=== PATIENT | male | born 1980 | race Two or more races ===

== ENCOUNTER 2025-01-08 22:43 | Emergency (ER) | payer SELFPAY ==
[2025-01-08 22:44] VITALS: BMI 30.7
--- NOTE | 2025-01-08 23:13 | PD.EDEYE ---
ED Eye Problem RME/HPI General Chief complaint: Eye Problems Stated complaint: FB IN LEFT EYE Time Seen by Provider: 01/08/25 23:12 Arrival date/time: 01/08/25 22:43 44M with no significant PMH presents to ED with FB sensation in L eye after he was doing metal grinding at home. Patient was wearing goggles but felt something in his L eye after he took them off. Patient does not wear contacts. Related Data Previous Rx's ?Medication ?Instructions ?Recorded ciprofloxacin HCl 500 mg tablet 500 mg PO Q12H #20 tabs 07/13/18 (Cipro) ibuprofen 800 mg tablet (IBU) 800 mg PO QID PRN pain #30 tabs 07/13/18 erythromycin 5 mg/gram (0.5 %) eye 0.5 inch ophthalmic (eye) BID 7 01/08/25 ointment days #3.5 grams Allergies Allergy/AdvReac Type Severity Reaction Status Date / Time No Known Allergies Allergy Verified 07/13/18 19:28 Review of Systems Review of Systems Systems Reviewed: All systems reviewed, normal except as documented Eyes Eyes: Reports as per HPI and Reports irritation Past Medical History Social History SMOKING STATUS: Never smoker Course Quality Measures none Orders Category Date Time Status ED Eye Irrigation ONCE Care 01/08/25 23:11 Active Robbins Lamp to Bedside X1 Care 01/08/25 23:11 Completed Erythromycin Op Oint 0.5% Med 01/08/25 23:11 Discontinued 1 gm LEFT EYE X1 ONE Fluorescein Sodium [Bio-Carola] Med 01/08/25 23:11 Discontinued 1 mg LEFT EYE X1 ONE TETRACAINE Op Ashley 0.5% [Pontocaine Op Ashley 0.5%] Med 01/08/25 23:11 Discontinued 1 drop LEFT EYE X1 ONE Vital Signs Vital signs: Vital Signs Temperature 98.2 F 01/08/25 23:26 Pulse Rate 98 01/08/25 23:26 Respiratory Rate 18 01/08/25 23:26 Blood Pressure 165/92 H 01/08/25 23:26 Pulse Oximetry (%) 99 01/08/25 23:26 Oxygen Delivery Method Room Air 01/08/25 23:26 Eye MDM Narrative MDM Narrative:: 44M with no significant PMH presents to ED with FB sensation in L eye after he was doing metal grinding at home. Patient was wearing goggles but felt something in his L eye after he took them off. Patient does not wear contacts. Physical exam reveals mild conjunctivitis in L eye. Normal pupil response and EOM. Patient is afebrile, calm, and alert. Wood's lamp exam some floating debris, but no obvious corneal injury. Eye irrigation, meds, and consumer credit counselor given. Patient data External records reviewed:: [facility] previous records Clinical information provided by:: patient Social determinants that could affect healthcare access:: none Patient has the following chronic illnesses:: none How is presenting disease/condition affected by chronic disease/condition?: no chronic disease Evaluation data The following diagnostics were reviewed and interpreted by me:: other (specify) (none) Lab and/or radiology exams considered but not ordered:: not ordered Interpretation Summary: n/a Medications / Prescriptions Medications or Prescriptions considered but not ordered:: ordered Medication administrations:: Medication Administration History Discontinued Medications Erythromycin (Erythromycin Op Oint 0.5% 1 Gm Packet) 1 gm LEFT EYE X1 ONE Stop: 01/08/25 23:12 Last Admin: 01/08/25 23:21 Dose: 1 gm Documented By: SHERIF Co-signed By: SHAR Fluorescein Sodium (Fluorescein Sod 1 Mg Strp) 1 mg LEFT EYE X1 ONE Stop: 01/08/25 23:12 Last Admin: 01/08/25 23:21 Dose: 1 mg Documented By: SHERIF Tetracaine HCl (Tetracaine Pf Op Ashley 0.5% 4 Ml Drpette) 1 drop LEFT EYE X1 ONE Stop: 01/08/25 23:12 Last Admin: 01/08/25 23:21 Dose: 1 drop Documented By: SHERIF above Consultations Consultation(s) initiated? (list below): No Diagnosis Eye Problem Differential Diagnosis: corneal abrasion, conjunctivitis, acute iritis, hyphema, periorbital cellulitis, subconjunctival hemorrhage, glaucoma, corneal ulcer, ruptured globe and other (FB eye) Most likely diagnosis given after review of the tests above:: Corneal injury Admission Indicated Admission indicated?: not indicated Admission Request Was there a request for admission?: No Disposition Plan Disposition Plan: Discharge Discharge Attestation Discharge Attestation: The patient and all family members were given an opportunity to ask questions and understood the discharge instructions. Discharge instructions specifically effects, indications for sooner follow up or return to the emergency department, and the expected course of current diagnosis. Patient condition: Stable Discharge Plan Plan Patient Disposition: HOME (Self Care) Discharge Disposition comment: Stable Prescriptions/Referrals Prescriptions/Med Rec: New erythromycin 5 mg/gram (0.5 %) ointment 0.5 inch ophthalmic (eye) BID 7 Days Qty: 3.5 0RF No Action ciprofloxacin HCl [Cipro] 500 mg tablet 500 mg PO Q12H Qty: 20 0RF ibuprofen [IBU] 800 mg tablet 800 mg PO QID PRN (Reason: pain) Qty: 30 0RF Problem List Clinical Impression: Corneal injury Patient/Caregiver Discharge Instructions Education Materials: Corneal Injury Additional Instructions: Please follow-up with PCP within 24-48 hours and return immediately if symptoms worsen. See eye doctor in the next few days. Print Language: [place]erratian Stand Alone Forms: Patient Portal Info Letter HUBER/WENCESLAO Supervising Physician HUBER/WENCESLAO Supervising Physician: Dr. Albert
[2025-01-08] MEDS: TETRACAINE PF OP SOL 0.5% 4 ML DRPETTE 1 DROP LEFT EYE (23:21)
[2025-01-08] MEDS: Erythromycin Op Oint 0.5% 1 GM PACKET LEFT EYE (23:21)
[2025-01-08] MEDS: FLUORESCEIN SOD 1 MG STRP LEFT EYE (23:21)
[2025-01-08 23:26] VITALS: BP 165/92; PULSE 98; RESP 18; TEMP 36.8; O2SAT 99
== END 2025-01-08 23:54 | disposition home or self-care (01) ==
LOC: SERX 01-09 00:02
PROVIDERS: Emergency Provider Emergency Medicine; PCP Family Medicine
DX: T15.02XA Foreign body in cornea, left eye, initial encounter (principal); W44.8XXA Other foreign body entering into or through a natural orifice, initial encounter; Y93.89 Activity, other specified; Y92.009 Unspecified place in unspecified non-institutional (private) residence as the place of occurrence of the external cause
CPT/HCPCS: 99282; A9270